=== PATIENT | male | born 2000 | race African-American/Black ===

== ENCOUNTER 2024-02-22 13:04 | Emergency (ER) | payer MEDICAID ==
[~2024-02-22] VITALS: Ht 182.9 cm; Wt 74.8 kg
[2024-02-22 13:05] VITALS: O2SAT 99
[2024-02-22 13:20] VITALS: BP 135/74; PULSE 82; RESP 16; TEMP 98; O2SAT 98
[2024-02-22 16:09] LABS: HEMATOCRIT. 47.4 % (42.0-52.0); HEMOGLOBIN. 15.9 g/dL (14.0-18.0); MEAN CORPUSCULAR HEMOGLOBIN 28.8 pg (28.0-32.0); MEAN CORPUSCULAR HGB CONC 33.6 g/dL (31.0-37.0); MEAN CORPUSCULAR VOLUME 85.7 fL (80.0-94.0); MEAN PLATELET VOLUME 8.2 fl (7.4-10.4); PLATELET 156 x1000/uL (130-400); RED BLOOD CELL COUNT 5.53 mill/uL (4.7-6.1); RED CELL DISTRIBUTION WIDTH 13.7 % (11.6-14.6); WHITE BLOOD COUNT 3.5 x1000/uL (4.5-11.0)
[2024-02-22 16:10] LABS: DIFFERENTIAL COMMENT 1
[2024-02-22 16:14] LABS: CHLORIDE 103 mEq/L (98-107); POTASSIUM 3.3 mEq/L (3.5-5.1); SODIUM 138 mEq/L (136-145)
[2024-02-22 16:16] LABS: CALCIUM 9.5 mg/dL (8.7-10.4); CARBON DIOXIDE 25 mEq/L (21-32)
[2024-02-22 16:21] LABS: GLUCOSE 102 mg/dL (70-105); UREA NITROGEN BLOOD 11 mg/dL (9-23)
[2024-02-22 16:23] LABS: ALANINE AMINOTRANSFERASE 40 IU/L (10-49); ASPARTATE AMINOTRANSFERASE 45 IU/L (<34); BILIRUBIN DIRECT 0.4 mg/dL (<=3.0); BILIRUBIN TOTAL 1.1 mg/dL (0.1-1.0); PROTEIN TOTAL 7.9 g/dL (6.0-8.3)
[2024-02-22] MEDS ORDERED: ONDA-239 PO (17:42)
[2024-02-22 18:14] LABS: PLATELET ESTIMATE NORMAL
== END 2024-02-22 18:03 | disposition home or self-care (01) ==
LOC: ER 13:04
DX: A08.4 Viral intestinal infection, unspecified (principal)
CPT/HCPCS: 36415; 80048; 80076; 85025; 99283